=== PATIENT | female | born 1960 | race Caucasian/White ===

== ENCOUNTER 2017-01-18 07:09 | Day surgery (SDC) | payer MEDICAID, OTHER ==
[2017-01-17 10:19] VITALS: Ht 162.6 cm; Wt 67.0 kg
[~2017-01-18] VITALS: Ht 162.6 cm; Wt 67.0 kg
[2017-01-18] VITALS (9 sets, daily range): BP systolic 102–142; BP diastolic 65–87; PULSE 54–59; RESP 11–22
[2017-01-18] MEDS ORDERED: CYCLOPENTOLATE 1% 2 ML OPH ONE (07:45)
[2017-01-18] MEDS ORDERED: DICLOFENAC 0.1% 2.5 ML OPH ONE (07:45)
[2017-01-18] MEDS ORDERED: BENA20TA48 PO (07:47)
[2017-01-18] MEDS ORDERED: LORA10TA3 PO (07:48)
[2017-01-18] MEDS ORDERED: BEN25 PO (07:48)
[2017-01-18] MEDS ORDERED: ATOR20TA38 PO (07:49)
[2017-01-18] MEDS ORDERED: GLIP5TAB13 PO (07:49)
[2017-01-18] MEDS ORDERED: METF1000 PO (07:50)
[2017-01-18] MEDS ORDERED: MOXIFLOXACIN 0.5% 3 ML OPH OPER SCH (08:00)
[2017-01-18] MEDS ORDERED: TETRACAINE 0.5% 4 ML OPH OPER SCH (08:00)
[2017-01-18] MEDS ORDERED: INSULIN REGULAR, HUMAN 100 UNIT/1 ML 3ML VIAL SC ONE (08:15)
[2017-01-18] MEDS ORDERED: GLUCOSE GEL 15 GRAM TUBE BUCCAL PRN (08:30)
[2017-01-18] MEDS ORDERED: GLUCOSE GEL 15 GRAM TUBE PO PRN ×2 (08:30)
[2017-01-18] MEDS ORDERED: LACTATED RINGER'S 1,000 ML IV SCH (08:30)
[2017-01-18] MEDS ORDERED: GLUCAGON 1 MG INJ IM PRN (08:30)
[2017-01-18] MEDS ORDERED: DEXTROSE 50% 50 ML SYRINGE IV PRN ×2 (08:30)
[2017-01-18] MEDS ORDERED: DICLOFENAC 0.1% 2.5 ML OPH OPER SCH (09:00)
[2017-01-18] MEDS ORDERED: LIDOCAINE 3.5% GEL TUBE OPER ONE (09:00)
[2017-01-18] MEDS ORDERED: CYCLOPENTOLATE 1% 2 ML OPH OPER SCH (09:00)
[2017-01-18] MEDS ORDERED: MIDAZOLAM 1 MG/ML 2 ML INJ ONE (09:25)
[2017-01-18] MEDS ORDERED: CEFAZOLIN 1 GM INJ ONE (09:25)
[2017-01-18] MEDS ORDERED: PHENYLephrine 10% 5 ML OPH LEFT EYE ONE (09:35)
[2017-01-18] MEDS ORDERED: LIDOCAINE 2%/EPI MPF (SDV) 20 ML VIAL INJ ONE (09:35)
[2017-01-18] MEDS ORDERED: TOBRAMYCIN/DEXAMETH 3.5 GM OPH OINT LEFT EYE ONE (09:48)
[2017-01-18] MEDS ORDERED: OXYCODONE/ACETAMINOPHEN (5/325) TAB PO PRN ×2 (10:00)
[2017-01-18] MEDS ORDERED: ONDANSETRON 4 MG INJ IV PRN (10:00)
[2017-01-18] MEDS ORDERED: HYDROmorphONE (0.2 MG/ML) 10ML SYG IV PRN ×3 (10:00)
--- NOTE | 2017-01-18 10:12 | SIPON ---
Date/Time of Note Date/Time of Note DATE: 01/18/17 TIME: 10:09 Operative Report Preoperative Diagnosis Double progressive peripheral pterigium, Left eye. Postoperative Diagnosis Double progressive peripheral pterigium, Left eye Operation/Procedure Performed Removal of pterigium in nasal area and placement of transpositional autograft. Removal of pterigium in temporal area and placement of transpositional autograft. Anesthesia Type: MAC Estimated Blood Loss: none Transfusion Required: no Specimen: none Grafts/Implants: none Complications: no FOUZIA PUENTE D.O. Jan 18, 2017 10:12
--- NOTE | 2017-01-18 13:39 | OPR ---
DATE OF OPERATION: 01/18/2017 SURGEON: Deanna Richard DO. ANESTHESIOLOGIST: Dr. Mckeon . PREOPERATIVE DIAGNOSIS: Double progressive peripheral pterygium, left eye. POSTOPERATIVE DIAGNOSIS: Double progressive peripheral pterygium, left eye. ANESTHESIA: MAC. PROCEDURE PLANNED: Removal of double pterygium with transpositional autograft, left eye. OPERATION PERFORMED: Removal of double pterygium with transpositional autograft, left eye. CONSENT: The patient was given all possible outcomes of surgery and most common complications were explained in detail. Patient understood that she has a risk of recurrence, scar formation, infection, bleeding, decrease of vision, loss of vision, loss of the eye. Patient signed consent, can be found in her chart. OPERATIVE PROCEDURE: Patient brought to the operating room in stable condition, placed on the operating table in supine position and her left eye was prepped for pterygium surgery in routine sterile technique. Preservative free lidocaine with epinephrine was injected subconjunctivally,in all 4 quadrants.Bipolar catheter used to demarcate the body of the pterygium in the nasal area. This was followed by separation of body of pterygium from underlying tissue with Jose scissors. This was followed by removal of the head of the pterygium from the cornea with a Morongo blade, and a delmer bur was used to bhutanese the cornea. Then 2 transpositional transplants were from underlying tissue and sutured together with 8-0 Vicryl suture. Then a similar procedure was done in the temporal area. Cautery was used to demarcate the body of the pterygium. Then Jose scissors used to separate the body of the pterygium from underlying tissue and a Morongo knife used to remove head of the pterygium from the cornea and polished with delmer bur. Then 2 autografts were removed from underlying tissue and sutured together with 8-0 Vicryl suture. Then Tobradex was instilled in the conjunctival sac. A patch was placed over closed eyelid. Dictated By: Deanna Richard DO /rani/adilson /Document#: [id number] [facility]
== END 2017-01-18 11:36 | disposition home or self-care (01) ==
LOC: SDS 07:09
PROVIDERS: ATTEND Ophthalmology
DX: H11.052 Peripheral pterygium, progressive, left eye (principal); H11.032 Double pterygium of left eye; E11.9 Type 2 diabetes mellitus without complications; I10 Essential (primary) hypertension
CPT/HCPCS: 65426; 82962; J0690; J1815; J2250; J7120; Z7512; Z7610